=== PATIENT | female | born 1975 | race Caucasian/White ===

== ENCOUNTER 2017-08-17 16:42 | Inpatient (IN) | payer OTHER ==
[~2017-08-17] VITALS: Ht 162.6 cm; Wt 66.3 kg
[2017-08-17 17:05] VITALS: BP 142/72; PULSE 125; RESP 20; TEMP 99.9; O2SAT 99
--- NOTE | 2017-08-17 17:52 | RADRPT ---
EXAM DATE/TIME: 08/17/2017 17:21 [facility] COMPARISON: No previous studies available for comparison. INDICATIONS : Fever, cough and congestion MEDICAL HISTORY : None. SURGICAL HISTORY : None. ENCOUNTER: Initial ACUITY: 1 week PAIN SCORE: 0/10 LOCATION: chest FINDINGS: PA and lateral views of the chest demonstrate the lungs to be symmetrically aerated without evidence of mass, infiltrate or effusion. The cardiomediastinal contours are unremarkable. Osseous structure s are intact. CONCLUSION: No acute cardiopulmonary disease. Bry Bhardwaj MD on August 17, 2017 at 17:50 Board Certified Radiologist. This report was verified electronically.
[2017-08-17 19:30] LABS: AUTOMATED NEUTROPHIL # 11.1 TH/MM3 (1.8-7.7); BASOPHIL % 0.3 % (0.0-2.0); EOSINOPHIL % 0.1 % (0.0-4.0); HEMATOCRIT 31.8 % (35.0-46.0); HEMOGLOBIN 10.8 GM/DL (11.6-15.3); LYMPH % 7.2 % (9.0-44.0); MEAN CORPUSCULAR HEMOGLOBIN 30.9 PG (27.0-34.0); MEAN CORPUSCULAR HGB CONC 33.9 % (32.0-36.0); MONOCYTE # 1.5 TH/MM3 (0-0.9); NEUT % 81.4 % (16.0-70.0); PLATELET COUNT 311 TH/MM3 (150-450); RED BLOOD COUNT 3.49 MIL/MM3 (4.00-5.30); WHITE BLOOD COUNT 13.6 TH/MM3 (4.0-11.0)
[2017-08-17 19:41] LABS: INTERNATIONAL NORMALIZED RATIO 1.1 RATIO; PROTHROMBIN TIME - PATIENT 10.7 SEC (9.8-11.6)
[2017-08-17 19:44] LABS: BACTERIA, URINE MANY /hpf; BILIRUBIN, URINE NEG (NEG); BLOOD, URINE MOD (NEG); GLUCOSE,URINE NEG (NEG); KETONE, URINE NEG (NEG); NITRITE,URINE NEG (NEG); URINE LEUKOCYTE ESTERASE LARGE (NEG); WHITE BLOOD CELL CLUMPS MANY
[2017-08-17 19:47] LABS: URINE COLOR YELLOW (YELLW/STRAW)
--- NOTE | 2017-08-17 20:06 | PD ---
HPI Chief Complaint: Fever Time Seen by Provider: 20:06 Travel History International Travel<30 days: No Contact w/Intl Traveler<30days: No Traveled to known affect area: No History of Present Illness HPI 41-year-old female came to the emergency room with history of intense body aches , fever and chills for past 1 week. Patient was seen in [facility] yesterday where she was diagnosed with flu. Patient says the flu swab was negative. However she has not been feeling well. This morning her temperature was 104 as per her . Patient does not have good appetite. She has been complaining of some right-sided flank pain. The pain has been there continuously but worse when she moves. No radiation of the pain. Patient had a temperature of 99.9 in triage. She is otherwise a healthy person as far as she knows. But she has not been seen by a primary care for many years. She appears to be moderately ill. There was blood work initiated in triage. [facility] Past Medical History Narrative Medical List of her past medical, surgical, social and family history is reviewed from the nursing note. Cardiovascular Problems: Yes (HTN) Past Surgical History Hysterectomy: Yes Social History Tobacco Use: Yes Allergies-Medications (Allergen,Severity, Reaction): Coded Allergies: No Known Allergies (Verified Allergy, Unknown, 08/17/17) Comments No known drug allergy Reported Meds & Prescriptions Reported Meds & Active Scripts Active No Active Prescriptions or Reported Medications Narrative Medication List of her home medications reviewed from the nursing note. Review of Systems Except as stated in HPI: all other systems reviewed are Neg General / Constitutional: Positive: Fever Genitourinary: Positive: Flank Pain Musculoskeletal: Positive: Myalgias Physical Exam Narrative GENERAL: Awake, alert, moderate distress SKIN: Focused skin assessment warm/dry. HEAD: Atraumatic. Normocephalic. EYES: Pupils equal and round. No scleral icterus. No injection or drainage. ENT: No nasal bleeding or discharge. Dry mucous membrane NECK: Trachea midline. No JVD. CARDIOVASCULAR: Regular rate and rhythm. No murmur appreciated. RESPIRATORY: No accessory muscle use. Clear to auscultation. Breath sounds equal bilaterally. GASTROINTESTINAL: Abdomen soft, non-tender, nondistended. Hepatic and splenic margins not palpable. MUSCULOSKELETAL: No obvious deformities. No clubbing. No cyanosis. No edema. NEUROLOGICAL: Awake and alert. No obvious cranial nerve deficits. Motor grossly within normal limits. Normal speech. PSYCHIATRIC: Appropriate mood and affect; insight and judgment normal. Data Data Last Documented VS Vital Signs Date Time Temp Pulse Resp B/P (MAP) Pulse Ox O2 Delivery O2 Flow Rate FiO2 08/17/17 20:50 97 18 122/74 (90) 98 Room Air 08/17/17 17:05 99.9 Orders Orders Complete Blood Count With Diff (08/17/17 17:07) Comprehensive Metabolic Panel (08/17/17 17:07) Prothrombin Time / Inr (Pt) (08/17/17 17:07) Act Partial Throm Time (Ptt) (08/17/17 17:07) Urinalysis - C+S If Indicated (08/17/17 17:07) Chest, Pa & Lat (08/17/17 ) Lactic Acid Sepsis Protocol (08/17/17 17:07) Influenzae A/B Antigen (08/17/17 17:07) Urine Culture (08/17/17 18:50) Ct Abd/Pel W/O Iv Contrast (08/17/17 ) Ceftriaxone Inj (Rocephin Inj) (08/17/17 20:30) Sodium Chlor 0.9% 1000 Ml Inj (Ns 1000 M (08/17/17 20:30) Sodium Chlor 0.9% 1000 Ml Inj (Ns 1000 M (08/17/17 20:30) Creatine Kinase (Cpk) (08/17/17 20:21) Blood Culture (08/17/17 20:56) Sodium Chlor 0.9% 1000 Ml Inj (Ns 1000 M (08/17/17 22:00) Admit Order (Ed Use Only) (08/17/17 22:23) Labs Laboratory Tests Test 08/17/17 18:50 08/17/17 19:00 Urine Color YELLOW Urine Turbidity CLOUDY Urine pH 6.0 Urine Specific [place] 1.016 Urine Protein 300 mg/dL Urine Glucose (UA) NEG mg/dL Urine Ketones NEG mg/dL Urine Occult Blood MOD Urine Nitrite NEG Urine Bilirubin NEG Urine Urobilinogen 2.0 MG/DL Urine Leukocyte Esterase LARGE Urine RBC /hpf Urine WBC /hpf Urine WBC Clumps MANY Urine Bacteria MANY /hpf Microscopic Urinalysis Comment CULTURE INDICATED White Blood Count 13.6 TH/MM3 Red Blood Count 3.49 MIL/MM3 Hemoglobin 10.8 GM/DL Hematocrit 31.8 % Mean Corpuscular Volume 91.0 FL Mean Corpuscular Hemoglobin 30.9 PG Mean Corpuscular Hemoglobin Concent 33.9 % Red Cell Distribution Width 13.0 % Platelet Count 311 TH/MM3 Mean Platelet Volume 7.0 FL Neutrophils (%) (Auto) 81.4 % Lymphocytes (%) (Auto) 7.2 % Monocytes (%) (Auto) 11.0 % Eosinophils (%) (Auto) 0.1 % Basophils (%) (Auto) 0.3 % Neutrophils # (Auto) 11.1 TH/MM3 Lymphocytes # (Auto) 1.0 TH/MM3 Monocytes # (Auto) 1.5 TH/MM3 Eosinophils # (Auto) 0.0 TH/MM3 Basophils # (Auto) 0.0 TH/MM3 CBC Comment DIFF FINAL Differential Comment Prothrombin Time 10.7 SEC Prothromb Time International Ratio 1.1 RATIO Activated Partial Thromboplast Time 36.2 SEC Blood Urea Nitrogen 44 MG/DL Creatinine 2.90 MG/DL Random Glucose 116 MG/DL Total Protein 7.3 GM/DL Albumin 2.1 GM/DL Calcium Level 9.8 MG/DL Alkaline Phosphatase 228 U/L Aspartate Amino Transf (AST/SGOT) 17 U/L Alanine Aminotransferase (ALT/SGPT) 20 U/L Total Bilirubin 0.9 MG/DL Sodium Level 135 MEQ/L Potassium Level 3.7 MEQ/L Chloride Level 102 MEQ/L Carbon Dioxide Level 21.1 MEQ/L Anion Gap 12 MEQ/L Estimat Glomerular Filtration Rate 18 ML/MIN Lactic Acid Level 1.8 mmol/L Total Creatine Kinase 14 U/L [facility] Medical Decision Making Medical Screen Exam Complete: Yes Emergency Medical Condition: Yes Medical Record Reviewed: Yes Differential Diagnosis Pyelonephritis, sepsis, acute renal failure, dehydration Narrative Course 8:55 PM blood test results are back and patient has leukocytosis with a significant UTI. Lactic acid is within normal limits. Renal function is compromised. There is no old labs to compare with. Patient does not know of any renal failure history. I have ordered 2 L of IV fluid bolus and IV Rocephin. Have ordered a CT scan of her abdomen and pelvis looking for any urinary obstruction. There is a CPK ordered as well. Patient eventually will require to be admitted for her renal failure. 9:59 PM the CAT scan report came back and show some stranding around the right kidney. Patient's heart rate has come down. I have ordered 1/3 L of IV fluid bolus. Awaiting for the hospitalist to call back for admission. Critical Care Narrative Aggregate critical care time was 45 minutes. Time to perform other separately billable procedures was not included in the critical care time. My time did not include minutes spent treating any other patients simultaneously or on activities that did not directly contribute to the patient's treatment. The services I provided to this patient were to treat and/or prevent clinically significant deterioration that could result in: Severe sepsis, fluid resuscitation I provided critical care services requiring my management, as noted below: Chart data review, documentation time, medication orders and management, vital sign assessments/reviewing monitor data, ordering and reviewing lab tests, ordering and interpreting/reviewing x-rays and diagnostic studies, care of the patient and discussion of the patient with the admitting physicians. Procedures EKG Prior to Arrival: No Sepsis Criteria SIRS Criteria (2 or more): Heart rate over 90, WBC > 80122, < 4000 or > 10% bands Sepsis Criteria (SIRS+source): Infect source susp/known Severe Sepsis (+one): Acute Oliguria/Renal Failure Diagnosis Primary Impression: Pyelonephritis Additional Impressions: Acute renal failure Qualified Codes: N17.9 - Acute kidney failure, unspecified Severe sepsis Admitting Information Admitting Physician Requests: Admit Scripts No Active Prescriptions or Reported Meds Helio Wright MD Aug 17, 2017 20:06
[2017-08-17 20:14] LABS: ALBUMIN 2.1 GM/DL (3.4-5.0); AST (GOT) 17 U/L (15-37); BICARBONATE 21.1 MEQ/L (21.0-32.0); BLOOD UREA NITROGEN 44 MG/DL (7-18); CALCIUM 9.8 MG/DL (8.5-10.1); CHLORIDE 102 MEQ/L (98-107); GLOMERULAR FILTRATION RATE 18 ML/MIN (>89); GLUCOSE,RANDOM 116 MG/DL (74-106); SODIUM (NA) 135 MEQ/L (136-145)
[2017-08-17 20:15] LABS: ALT (GPT) 20 U/L (10-53)
[2017-08-17 20:18] LABS: ALKALINE PHOSPHATASE 228 U/L (45-117); TOTAL BILIRUBIN ADULT 0.9 MG/DL (0.2-1.0); TOTAL PROTEIN 7.3 GM/DL (6.4-8.2)
[2017-08-17] MEDS ORDERED: cefTRIAXone INJ 1,000 MG in SODIUM CHLORIDE 0.9% INJ 100 ML IV ONE (20:30)
[2017-08-17] MEDS ORDERED: SODIUM CHLOR 0.9% 1000 ML INJ 1,000 ML IV ONE ×3 (20:30→22:00)
[2017-08-17 20:50] VITALS: BP 122/74; PULSE 97; RESP 18; O2SAT 98
--- NOTE | 2017-08-17 21:47 | RADRPT ---
EXAM DATE/TIME: 08/17/2017 21:14 [facility] COMPARISON: No previous studies available for comparison. INDICATIONS : Right side flank pain, flu symptoms. ORAL CONTRAST: No oral contrast ingested. RADIATION DOSE: 6.10 CTDIvol (mGy) MEDICAL HISTORY : Hypertension. SURGICAL HISTORY : Hysterectomy. ENCOUNTER: Initial ACUITY: 4 - 6 days PAIN SCALE: 5/10 LOCATION: Right flank TECHNIQUE: Volumetric scanning of the abdomen and pelvis was performed. Using automated exposure control and ad justment of the mA and/or kV according to patient size, radiation dose was kept as low as reasonably achievable to obtain optimal diagnostic quality images. DICOM format image data is available electro nically for review and comparison. FINDINGS: There are numerous tiny bilateral renal calculi. There is some stranding around the right kidney coul d be related to recent obstructive uropathy although no current ureteral or bladder calculi are seen. Cannot exclude inflammatory change around the right kidney. Lung bases are clear. No acute findings in the liver, spleen, adrenals or pancreas. No free fluid. No bowel obstruction. No adenopathy. Postoperative hysterectomy. CONCLUSION: 1. Numerous tiny bilateral nonobstructing renal calculi. 2. Mild stranding of fat around the right kidney could be from recent obstructive uropathy or mild in flammatory change. 3. No bowel obstruction, free air or free fluid. Lung bases clear. Bayron Varner MD on August 17, 2017 at 21:41 Board Certified Radiologist. This report was verified electronically.
[2017-08-17 22:47] VITALS: TEMP 99.8
[2017-08-18] MEDS ORDERED: ONDANSETRON HCL 4 MG/2 ML VIAL IVP PRN (00:15)
[2017-08-18] MEDS ORDERED: SODIUM CHLORIDE 0.9% FLUSH 10 ML FLUSH IV FLUSH PRN (00:15)
[2017-08-18] MEDS ORDERED: NALOXONE HCL 0.4 MG/ML AMP IV PUSH PRN (00:15)
[2017-08-18] MEDS: SODIUM CHLOR 0.9% 1000 ML INJ 1,000 ML IV SCH ×4 (01:20→21:59)
--- NOTE | 2017-08-18 01:23 | HHI.HP ---
[facility] Service [facility] Primary Care Physician Non-Staff Admission Diagnosis Severe sepsis, acute renal failure, pyelonephritis Diagnoses: Travel History International Travel<30 Days: No Contact w/Intl Traveler <30 Da: No Traveled to Known Affected Are: No History of Present Illness 41-year-old female with a past medical history significant for hypertension presents the emergency department for the evaluation of flulike symptoms. The patient states she has had fevers and chills 7 days with accompanying body aches. She complains of a cough productive of clear sputum with occasional shortness of breath. He denies any chest pain. She endorses bilateral side and flank pain. Denies any dysuria. No foul-smelling urine. No abdominal pain. No nausea/vomiting/diarrhea. Review of Systems Except as stated in HPI: all other systems reviewed are Neg Past Family Social History Past Medical History Hypertension Past Surgical History Hysterectomy Reported Medications Reported Meds & Active Scripts Active No Active Prescriptions or Reported Medications Allergies: Coded Allergies: No Known Allergies (Verified Allergy, Unknown, 08/17/17) Family History Father with diabetes mellitus Social History Negative for alcohol, tobacco and illicit drugs Physical Exam Vital Signs Vital Signs Date Time Temp Pulse Resp B/P (MAP) Pulse Ox O2 Delivery O2 Flow Rate FiO2 08/17/17 22:47 99.8 08/17/17 20:50 97 18 122/74 (90) 98 Room Air 08/17/17 17:05 99.9 125 20 142/72 (95) 99 Physical Exam GENERAL: female lying in bed, shivering SKIN: No rashes, ecchymoses or lesions. Cool and dry. HEAD: Atraumatic. Normocephalic. No temporal or scalp tenderness. EYES: Pupils equal round and reactive. Extraocular motions intact. No scleral icterus. No injection or drainage. ENT: Nose without bleeding, purulent drainage or septal hematoma. Throat without erythema, tonsillar hypertrophy or exudate. Uvula midline. Airway patent. NECK: Trachea midline. No JVD or lymphadenopathy. Supple, nontender, no meningeal signs. CARDIOVASCULAR: Regular rate and rhythm without murmurs, gallops, or rubs. RESPIRATORY: Clear to auscultation. Breath sounds equal bilaterally. No wheezes , rales, or rhonchi. GASTROINTESTINAL: Abdomen soft, non-tender, nondistended. No hepato-splenomegaly , or palpable masses. No guarding. : No CVA tenderness MUSCULOSKELETAL: Extremities without clubbing, cyanosis, or edema. No joint tenderness, effusion, or edema noted. No calf tenderness. NEUROLOGICAL: Awake and alert. Cranial nerves II through XII intact. Motor and sensory grossly within normal limits. Normal speech. Laboratory Laboratory Tests Test 08/17/17 18:50 08/17/17 19:00 Urine Color YELLOW Urine Turbidity CLOUDY Urine pH 6.0 Urine Specific [place] 1.016 Urine Protein 300 Urine Glucose (UA) NEG Urine Ketones NEG Urine Occult Blood MOD Urine Nitrite NEG Urine Bilirubin NEG Urine Urobilinogen 2.0 Urine Leukocyte Esterase LARGE Urine RBC Urine WBC Urine WBC Clumps MANY Urine Bacteria MANY Microscopic Urinalysis Comment CULTURE INDICATED White Blood Count 13.6 Red Blood Count 3.49 Hemoglobin 10.8 Hematocrit 31.8 Mean Corpuscular Volume 91.0 Mean Corpuscular Hemoglobin 30.9 Mean Corpuscular Hemoglobin Concent 33.9 Red Cell Distribution Width 13.0 Platelet Count 311 Mean Platelet Volume 7.0 Neutrophils (%) (Auto) 81.4 Lymphocytes (%) (Auto) 7.2 Monocytes (%) (Auto) 11.0 Eosinophils (%) (Auto) 0.1 Basophils (%) (Auto) 0.3 Neutrophils # (Auto) 11.1 Lymphocytes # (Auto) 1.0 Monocytes # (Auto) 1.5 Eosinophils # (Auto) 0.0 Basophils # (Auto) 0.0 CBC Comment DIFF FINAL Differential Comment Prothrombin Time 10.7 Prothromb Time International Ratio 1.1 Activated Partial Thromboplast Time 36.2 Blood Urea Nitrogen 44 Creatinine 2.90 Random Glucose 116 Total Protein 7.3 Albumin 2.1 Calcium Level 9.8 Alkaline Phosphatase 228 Aspartate Amino Transf (AST/SGOT) 17 Alanine Aminotransferase (ALT/SGPT) 20 Total Bilirubin 0.9 Sodium Level 135 Potassium Level 3.7 Chloride Level 102 Carbon Dioxide Level 21.1 Anion Gap 12 Estimat Glomerular Filtration Rate 18 Lactic Acid Level 1.8 Total Creatine Kinase 14 Date/Time Source Procedure Growth Status 08/17/17 21:25 Blood Peripheral Aerobic Blood Culture Pending Received 4/2/18 21:25 Blood Peripheral Anaerobic Blood Culture Pending Received 08/17/17 18:50 Nasal Aspirate Influenza Types A,B Antigen (ESTELA) - Final NEGATIVE FOR FLU A AND B ANTIGEN.... Complete 08/17/17 18:50 Urine Clean Catch Urine Culture Pending Received Result Diagram: 08/17/17 1900 08/17/17 1900 Caprini VTE Risk Assessment Caprini VTE Risk Assessment: No/Low Risk (score <= 1) Caprini Risk Assessment Model Point Value = 1 Point Value = 2 Point Value = 3 Point Value = 5 Age 41-60 Minor surgery BMI > 25 kg/m2 Swollen legs Varicose veins or History of unexplained or recurrent spontaneous Oral contraceptives or hormone replacement Sepsis (< 1 month) Serious lung disease, including pneumonia (< 1 month) Abnormal pulmonary function Acute myocardial infarction Congestive heart failure (< 1 month) History of inflammatory bowel disease Medical patient at bed rest Age 61-74 Arthroscopic surgery Major open surgery (> 45 min) Laparoscopic surgery (> 45 min) Malignancy Confined to bed (> 72 hours) Immobilizing plaster cast Central venous access Age >= 75 History of VTE Family history of VTE Factor V Leiden Prothrombin [id number] Lupus anticoagulant Anticardiolipin antibodies Elevated serum homocysteine Heparin-induced thrombocytopenia Other congenital or acquired thrombophilia Stroke (< 1 month) Elective arthroplasty Hip, pelvis, or leg fracture Acute spinal cord injury (< 1 month) Prophylaxis Regimen Total Risk Factor Score Risk Level Prophylaxis Regimen 0-1 Low Early ambulation 2 Moderate Order ONE of the following: *Sequential Compression Device (SCD) *Heparin 5000 units SQ BID 3-4 Higher Order ONE of the following medications: *Heparin 5000 units SQ TID *Enoxaparin/Lovenox 40 mg SQ daily (WT < 150 kg, CrCl > 30 mL/min) *Enoxaparin/Lovenox 30 mg SQ daily (WT < 150 kg, CrCl > 10-29 mL/min) *Enoxaparin/Lovenox 30 mg SQ BID (WT < 150 kg, CrCl > 30 mL/min) AND/OR *Sequential Compression Device (SCD) 5 or more Highest Order ONE of the following medications: *Heparin 5000 units SQ TID (Preferred with Epidurals) *Enoxaparin/Lovenox 40 mg SQ daily (WT < 150 kg, CrCl > 30 mL/min) *Enoxaparin/Lovenox 30 mg SQ daily (WT < 150 kg, CrCl > 10-29 mL/min) *Enoxaparin/Lovenox 30 mg SQ BID (WT < 150 kg, CrCl > 30 mL/min) AND *Sequential Compression Device (SCD) Assessment and Plan Assessment and Plan Assessment/plan: 1. Sepsis/UTI She meets sepsis criteria with leukocytosis and tachycardia UA insistent with urinary tract infection Urine cultures pending Blood cultures pending Rocephin IV fluid hydration 2. Acute renal failure BUN/creatinine 44/2.90, no baseline for comparison Unknown etiology CT of the abdomen/pelvis significant for numerous bilateral nonobstructing renal calculi with mild stranding of fat around the right kidney from recent obstructive uropathy versus mild inflammatory change IV fluid hydration Monitor renal function Consider nephrology consult if renal function does not improve 3. Hypertension Patient not on home antihypertensives Vasotec when necessary FEN Regular diet Electrolytes: Monitor and replete when necessary NS at 1 25 cc/hour Physician Certification 2 Midnight Certification Type: Admission for Inpatient Services Order for Inpatient Services The services are ordered in accordance with Medicare regulations or non- Medicare payer requirements, as applicable. In the case of services not specified as inpatient-only, they are appropriately provided as inpatient services in accordance with the 2-midnight benchmark. Estimated LOS (days): 2 2 days is the estimated time the patient will need to remain in the hospital, assuming treatment plan goals are met and no additional complications. Post-Hospital Plan: Not yet determined Juana Law MD Aug 18, 2017 01:23
[2017-08-18 05:35] VITALS: BP 124/73; PULSE 100; RESP 19; TEMP 101.3; O2SAT 99
[2017-08-18] MEDS: ACETAMINOPHEN 325 MG TAB PO PRN ×3 (05:40→21:58)
[2017-08-18 06:40] VITALS: TEMP 99.5
[2017-08-18] MEDS: SODIUM CHLORIDE 0.9% FLUSH 10 ML FLUSH IV FLUSH SCH ×2 (08:18→21:58)
[2017-08-18 08:56] VITALS: BP 121/77; PULSE 92; RESP 17; TEMP 99.8; O2SAT 99
[2017-08-18 12:45] VITALS: BP 123/91; PULSE 110; RESP 19; TEMP 101.8; O2SAT 97
--- NOTE | 2017-08-18 16:00 | HHI.PR ---
Subjective Remarks patient presented with generalized body aches for past 7-0 days with fever and chill and body aches- like flulike symptoms few days ago noted cloudy bloody urine with bilateral flank pains states history of kidney stones which she passed spontaneously 3 years ago- no stone analysis done otherwise unremarkabel medical history no complains of dysuria or urgency t max 101.8 Objective Vitals Vital Signs Date Time Temp Pulse Resp B/P (MAP) Pulse Ox O2 Delivery O2 Flow Rate FiO2 08/18/17 14:02 08/18/17 12:45 101.8 110 19 123/91 (102) 97 Room Air 08/18/17 08:56 99.8 92 17 121/77 (92) 99 Room Air 08/18/17 06:40 99.5 08/18/17 05:35 101.3 100 19 124/73 (90) 99 Room Air 08/17/17 22:47 99.8 08/17/17 20:50 97 18 122/74 (90) 98 Room Air 08/17/17 17:05 99.9 125 20 142/72 (95) 99 I/O 08/17/17 08/17/17 08/17/17 08/18/17 08/18/17 08/18/17 07:00 15:00 23:00 07:00 15:00 23:00 Intake Total 2100 ml 1000 ml Balance 2100 ml 1000 ml Intake IV Total 2100 ml 1000 ml # Voids 1 Result Diagram: 08/17/17 1900 08/17/17 1900 Imaging Last Impressions Chest X-Ray 08/17/17 0000 Signed Impressions: Service Date/Time: Thursday, August 17, 2017 17:21 - CONCLUSION: No acute cardiopulmonary disease. Bry Bhardwaj MD Abdomen/Pelvis CT 08/17/17 0000 Signed Impressions: Service Date/Time: Thursday, August 17, 2017 21:14 - CONCLUSION: 1. Numerous tiny bilateral nonobstructing renal calculi. 2. Mild stranding of fat around the right kidney could be from recent obstructive uropathy or mild inflammatory change. 3. No bowel obstruction, free air or free fluid. Lung bases clear. Bayron Varner MD Objective Remarks awake and alert but feels weak anicteric no nuchal rigidity lungs- no rales regular rhythm HR- 99 abdomen-sfot good bowel sounds, bilateral CVA tenderness extremities no edema neuro exam- non focal A/P Assessment and Plan 41 years old female Sepsis secondary to Bilateral pyelonephritis- urine culture- with Gram negative rods- ff final c and S- t max 101.8 History of nephrolithiasis in the past blood culture- negative so far- ff final results Rocephin will give x 1 diose of IV levaquin for double gram negative coverage will get ID involve early consider Urology consult Acute Kidney injury- no baseline labs for comparison Underlying obstructive Uropathy - with history of passing stone sin the past CT shows non obstructing calculi patient voiding well- ff continue aggressive IVF ff BMP consider urology consult vs nephrology consult if no improvement in renal functions Hypertension Hold prn IV Kilo with LEANDRO korina clonidine prn FEN Regular diet Electrolytes: Monitor and replete when necessary NS at 1 25 cc/hour UP and ambulate. Increase activity Tigre Pagan MD Aug 18, 2017 16:00
[2017-08-18] MEDS ORDERED: LEVOFLOXACIN 500 MG PREMIX INJ 100 ML IV ONE (16:15)
--- NOTE | 2017-08-18 17:37 | PD.ID.CON ---
History of Present Illness Service ID Consult Requested By Dr Pagan Reason for Consult sepsis, pyelo Primary Care Physician Non-Staff Diagnoses: History of Present Illness 41 yo female with previously diagnosed kidney stones developped spiking fevers, hills and generalysed pain about 2 weeks ago She did not seek med attention untill Thursday because she was sure that she had a a flu She was seen at [facility] on Sun, diagnosed with flu and discharged Noted smell to her urine and some hematuria CT abd/pel showed mild stranding around R kidney and caluli (b/l) On presentation febrile with T max 101.3, + leukocytosis of 13K, no lactic acidosiss and in aARF (cr 2.90) Urine clx growing GNR - on CFTX Review of Systems Constitutional: COMPLAINS OF: Fatigue, Fever, Change in appetite Respiratory: COMPLAINS OF: Cough Gastrointestinal: COMPLAINS OF: Nausea, Vomiting Genitourinary: COMPLAINS OF: Hematuria Musculoskeletal: COMPLAINS OF: Back pain Except as stated in HPI: all other systems reviewed are Neg Past Family Social History Allergies: Coded Allergies: No Known Allergies (Verified Allergy, Unknown, 08/17/17) Past Medical History kidney stones Past Surgical History hysterectomy 5 yrs ago (benign) Active Ordered Medications Medications where reviewed in EMR Antibiotics Include: CFTX Family History reviewed/non contributory Social History No Tobacco. No ETOH. No Illicit Drugs. Physical Exam Vital Signs Vital Signs Date Time Temp Pulse Resp B/P (MAP) Pulse Ox O2 Delivery O2 Flow Rate FiO2 08/18/17 14:02 08/18/17 12:45 101.8 110 19 123/91 (102) 97 Room Air 08/18/17 08:56 99.8 92 17 121/77 (92) 99 Room Air 08/18/17 06:40 99.5 08/18/17 05:35 101.3 100 19 124/73 (90) 99 Room Air 08/17/17 22:47 99.8 08/17/17 20:50 97 18 122/74 (90) 98 Room Air Physical Exam CONSTITUTIONAL/GENERAL: This is an adequately nourished patient, in no apparent distress. Ill appearing TUBES/LINES/DRAINS: SKIN: No jaundice, rashes, or lesions. Skin temperature appropriate. Not diaphoretic. HEAD: Atraumatic. Normocephalic. EYES: Pupils equal and round and reactive. Extraocular motions intact. No scleral icterus. No injection or drainage. Fundi not examined. ENT: Hearing grossly normal. Nose without bleeding or purulent drainage. Throat without visible erythema, exudates, masses, or lesions. NECK: Trachea midline. Supple, nontender. No palpable thyroid enlargement or nodularity. CARDIOVASCULAR: Regular rate and rhythm without murmurs, gallops, or rubs. No JVD. Peripheral pulses symmetric. RESPIRATORY/CHEST: Symmetric, unlabored respirations. Clear to auscultation. Breath sounds equal bilaterally. No wheezes, rales, or rhonchi. GASTROINTESTINAL: Abdomen soft,mildly tender, nondistended. No hepato- splenomegaly, or palpable masses. No guarding. Bowel sounds present. GENITOURINARY: Without palpable bladder distension. + B/L prominent CVA tenderness MUSCULOSKELETAL: Extremities without clubbing, cyanosis, + trace BLE edema. No joint tenderness or effusion noted. No calf tenderness. No mottling or clubbing. LYMPHATICS: No palpable cervical or supraclavicular adenopathy. NEUROLOGICAL: Awake and alert. Motor and sensory grossly within normal limits. Follows commands. Clear speech. Moves all extremities. PSYCHIATRIC: No obvious anxiety/depression. no apparent hallucinations or other psychotic thought process. Laboratory Laboratory Tests Test 08/17/17 18:50 08/17/17 19:00 Urine Color YELLOW Urine Turbidity CLOUDY Urine pH 6.0 Urine Specific Frederic 1.016 Urine Protein 300 Urine Glucose (UA) NEG Urine Ketones NEG Urine Occult Blood MOD Urine Nitrite NEG Urine Bilirubin NEG Urine Urobilinogen 2.0 Urine Leukocyte Esterase LARGE Urine RBC Urine WBC Urine WBC Clumps MANY Urine Bacteria MANY Microscopic Urinalysis Comment CULTURE INDICATED White Blood Count 13.6 Red Blood Count 3.49 Hemoglobin 10.8 Hematocrit 31.8 Mean Corpuscular Volume 91.0 Mean Corpuscular Hemoglobin 30.9 Mean Corpuscular Hemoglobin Concent 33.9 Red Cell Distribution Width 13.0 Platelet Count 311 Mean Platelet Volume 7.0 Neutrophils (%) (Auto) 81.4 Lymphocytes (%) (Auto) 7.2 Monocytes (%) (Auto) 11.0 Eosinophils (%) (Auto) 0.1 Basophils (%) (Auto) 0.3 Neutrophils # (Auto) 11.1 Lymphocytes # (Auto) 1.0 Monocytes # (Auto) 1.5 Eosinophils # (Auto) 0.0 Basophils # (Auto) 0.0 CBC Comment DIFF FINAL Differential Comment Prothrombin Time 10.7 Prothromb Time International Ratio 1.1 Activated Partial Thromboplast Time 36.2 Blood Urea Nitrogen 44 Creatinine 2.90 Random Glucose 116 Total Protein 7.3 Albumin 2.1 Calcium Level 9.8 Alkaline Phosphatase 228 Aspartate Amino Transf (AST/SGOT) 17 Alanine Aminotransferase (ALT/SGPT) 20 Total Bilirubin 0.9 Sodium Level 135 Potassium Level 3.7 Chloride Level 102 Carbon Dioxide Level 21.1 Anion Gap 12 Estimat Glomerular Filtration Rate 18 Lactic Acid Level 1.8 Total Creatine Kinase 14 Date/Time Source Procedure Growth Status 08/17/17 21:25 Blood Peripheral Aerobic Blood Culture - Preliminary NO GROWTH IN 1 DAY Resulted 08/17/17 21:25 Blood Peripheral Anaerobic Blood Culture - Preliminary NO GROWTH IN 1 DAY Resulted 08/17/17 18:50 Nasal Aspirate Influenza Types A,B Antigen (ESTELA) - Final NEGATIVE FOR FLU A AND B ANTIGEN.... Complete 08/17/17 18:50 Urine Clean Catch Urine Culture - Preliminary Gram Negative Wilberto Resulted Result Diagram: 08/17/17 1900 08/17/17 1900 Imaging Last Impressions Chest X-Ray 08/17/17 0000 Signed Impressions: Service Date/Time: Thursday, August 17, 2017 17:21 - CONCLUSION: No acute cardiopulmonary disease. Bry Bhardwaj MD Abdomen/Pelvis CT 08/17/17 0000 Signed Impressions: Service Date/Time: Thursday, August 17, 2017 21:14 - CONCLUSION: 1. Numerous tiny bilateral nonobstructing renal calculi. 2. Mild stranding of fat around the right kidney could be from recent obstructive uropathy or mild inflammatory change. 3. No bowel obstruction, free air or free fluid. Lung bases clear. Bayron Varner MD Assessment and Plan Assessment and Plan Pyelonephriotis R sided UTI, Gram negative Sepsis ARF probably 2/2 obstructive uropathy 2/2 kid ey stonmes or denydratio or both change abx to Monica Lemus MD Aug 18, 2017 17:36
[2017-08-18 17:58] VITALS: BP 122/77; PULSE 104; RESP 22; TEMP 99.9; O2SAT 99
[2017-08-18 20:00] VITALS: BP 124/69; PULSE 106; RESP 20; TEMP 98.9; O2SAT 97
[2017-08-18] MEDS ORDERED: cefTRIAXone INJ 1,000 MG in SODIUM CHLORIDE 0.9% INJ 100 ML IV SCH (21:00)
[2017-08-18] MEDS: PIPERACIL-TAZO 2.25 GM PREMIX 50 ML IV SCH (21:55)
[2017-08-19] VITALS: BP 124/70; PULSE 96; RESP 18; TEMP 98.9; O2SAT 97
[2017-08-19] MEDS: PIPERACIL-TAZO 2.25 GM PREMIX 50 ML IV SCH ×3 (03:47→14:17)
[2017-08-19 04:00] VITALS: BP 122/78; PULSE 84; RESP 18; TEMP 99.1; O2SAT 100
[2017-08-19 04:58] LABS: AUTOMATED NEUTROPHIL # 8.3 TH/MM3 (1.8-7.7); BASOPHIL # 0.1 TH/MM3 (0-0.2); BASOPHIL % 0.5 % (0.0-2.0); EOSINOPHIL # 0.2 TH/MM3 (0-0.4); EOSINOPHIL % 1.5 % (0.0-4.0); LYMPHOCYTE # 1.3 TH/MM3 (1.0-4.8); MEAN CELL VOLUME 91.5 FL (80.0-100.0); MEAN CORPUSCULAR HEMOGLOBIN 30.6 PG (27.0-34.0); MEAN CORPUSCULAR HGB CONC 33.5 % (32.0-36.0); MONO % 13.9 % (0.0-8.0); MONOCYTE # 1.6 TH/MM3 (0-0.9); NEUT % 73.1 % (16.0-70.0); PLATELET COUNT 310 TH/MM3 (150-450); RED BLOOD COUNT 2.95 MIL/MM3 (4.00-5.30); RED CELL DISTRIBUTION WIDTH 13.8 % (11.6-17.2); WHITE BLOOD COUNT 11.4 TH/MM3 (4.0-11.0)
[2017-08-19 05:30] LABS: ALBUMIN 1.5 GM/DL (3.4-5.0); ALKALINE PHOSPHATASE 305 U/L (45-117); ALT (GPT) 34 U/L (10-53); AST (GOT) 58 U/L (15-37); BICARBONATE 20.6 MEQ/L (21.0-32.0); BLOOD UREA NITROGEN 26 MG/DL (7-18); CALCIUM 8.5 MG/DL (8.5-10.1); CHLORIDE 113 MEQ/L (98-107); CREATININE 1.85 MG/DL (0.50-1.00); GLOMERULAR FILTRATION RATE 30 ML/MIN (>89); GLUCOSE,RANDOM 93 MG/DL (74-106); SODIUM (NA) 142 MEQ/L (136-145); TOTAL BILIRUBIN ADULT 1.5 MG/DL (0.2-1.0); TOTAL PROTEIN 6.6 GM/DL (6.4-8.2)
[2017-08-19 08:00] VITALS: BP 117/73; PULSE 95; RESP 18; TEMP 98.3; O2SAT 98
[2017-08-19] MEDS: SODIUM CHLOR 0.9% 1000 ML INJ 1,000 ML IV SCH ×3 (08:12→21:06)
[2017-08-19] MEDS: SODIUM CHLORIDE 0.9% FLUSH 10 ML FLUSH IV FLUSH SCH ×2 (08:42→21:00)
[2017-08-19] MEDS: ACETAMINOPHEN 325 MG TAB PO PRN ×2 (09:14→21:07)
[2017-08-19 12:00] VITALS: BP 121/66; PULSE 85; RESP 18; TEMP 98.1; O2SAT 99
[2017-08-19] MEDS ORDERED: ASP: Documented ESBL, MDR A baumannii or P. aeruginosa PRN (14:45)
[2017-08-19] MEDS ORDERED: MISCELLANEOUS PHARMACY INFORMATION XX PRN (14:45)
--- NOTE | 2017-08-19 15:00 | HHI.IDPN ---
Subjective Subjective Remarks pt is doing much better afebrile Grew ESBL + E.coli Antibiotics zosyn Allergies: Coded Allergies: No Known Allergies (Verified Allergy, Unknown, 08/17/17) Objective . Vital Signs Date Time Temp Pulse Resp B/P (MAP) Pulse Ox O2 Delivery O2 Flow Rate FiO2 08/19/17 12:00 98.1 85 18 121/66 (84) 99 08/19/17 10:14 18 08/19/17 08:00 98.3 95 18 117/73 (88) 98 08/19/17 04:00 99.1 84 18 122/78 (93) 100 08/19/17 00:00 98.9 96 18 124/70 (88) 97 08/18/17 20:00 98.9 106 20 124/69 (87) 97 08/18/17 17:58 99.9 104 22 122/77 (92) 99 . Laboratory Tests Test 08/17/17 19:00 08/19/17 03:35 White Blood Count 13.6 TH/MM3 11.4 TH/MM3 Red Blood Count 3.49 MIL/MM3 2.95 MIL/MM3 Hemoglobin 10.8 GM/DL 9.0 GM/DL Hematocrit 31.8 % 27.0 % Mean Corpuscular Volume 91.0 FL 91.5 FL Mean Corpuscular Hemoglobin 30.9 PG 30.6 PG Mean Corpuscular Hemoglobin Concent 33.9 % 33.5 % Red Cell Distribution Width 13.0 % 13.8 % Platelet Count 311 TH/MM3 310 TH/MM3 Mean Platelet Volume 7.0 FL 7.0 FL Neutrophils (%) (Auto) 81.4 % 73.1 % Lymphocytes (%) (Auto) 7.2 % 11.0 % Monocytes (%) (Auto) 11.0 % 13.9 % Eosinophils (%) (Auto) 0.1 % 1.5 % Basophils (%) (Auto) 0.3 % 0.5 % Neutrophils # (Auto) 11.1 TH/MM3 8.3 TH/MM3 Lymphocytes # (Auto) 1.0 TH/MM3 1.3 TH/MM3 Monocytes # (Auto) 1.5 TH/MM3 1.6 TH/MM3 Eosinophils # (Auto) 0.0 TH/MM3 0.2 TH/MM3 Basophils # (Auto) 0.0 TH/MM3 0.1 TH/MM3 CBC Comment DIFF FINAL DIFF FINAL Differential Comment Laboratory Tests Test 08/17/17 19:00 08/19/17 03:35 Blood Urea Nitrogen 44 MG/DL 26 MG/DL Creatinine 2.90 MG/DL 1.85 MG/DL Random Glucose 116 MG/DL 93 MG/DL Total Protein 7.3 GM/DL 6.6 GM/DL Albumin 2.1 GM/DL 1.5 GM/DL Calcium Level 9.8 MG/DL 8.5 MG/DL Alkaline Phosphatase 228 U/L 305 U/L Aspartate Amino Transf (AST/SGOT) 17 U/L 58 U/L Alanine Aminotransferase (ALT/SGPT) 20 U/L 34 U/L Total Bilirubin 0.9 MG/DL 1.5 MG/DL Sodium Level 135 MEQ/L 142 MEQ/L Potassium Level 3.7 MEQ/L 4.5 MEQ/L Chloride Level 102 MEQ/L 113 MEQ/L Carbon Dioxide Level 21.1 MEQ/L 20.6 MEQ/L Anion Gap 12 MEQ/L 8 MEQ/L Estimat Glomerular Filtration Rate 18 ML/MIN 30 ML/MIN Lactic Acid Level 1.8 mmol/L Total Creatine Kinase 14 U/L Microbiology Date/Time Source Procedure Growth Status 08/17/17 21:25 Blood Peripheral Aerobic Blood Culture - Preliminary NO GROWTH IN 2 DAYS Resulted 08/17/17 21:25 Blood Peripheral Anaerobic Blood Culture - Preliminary NO GROWTH IN 2 DAYS Resulted 08/17/17 21:15 Blood Peripheral Aerobic Blood Culture - Preliminary NO GROWTH IN 2 DAYS Resulted 08/17/17 21:15 Blood Peripheral Anaerobic Blood Culture - Preliminary NO GROWTH IN 2 DAYS Resulted 08/17/17 18:50 Nasal Aspirate Influenza Types A,B Antigen (ESTELA) - Final NEGATIVE FOR FLU A AND B ANTIGEN.... Complete 08/17/17 18:50 Urine Clean Catch Urine Culture - Final Escherichia Coli Esbl Positive Complete Imaging Last Impressions Chest X-Ray 08/17/17 0000 Signed Impressions: Service Date/Time: Thursday, August 17, 2017 17:21 - CONCLUSION: No acute cardiopulmonary disease. Bry Bhardwaj MD Abdomen/Pelvis CT 08/17/17 0000 Signed Impressions: Service Date/Time: Thursday, August 17, 2017 21:14 - CONCLUSION: 1. Numerous tiny bilateral nonobstructing renal calculi. 2. Mild stranding of fat around the right kidney could be from recent obstructive uropathy or mild inflammatory change. 3. No bowel obstruction, free air or free fluid. Lung bases clear. Bayron Varner MD Physical Exam CONSTITUTIONAL/GENERAL: This is an adequately nourished patient, in no apparent distress.Well appearing TUBES/LINES/DRAINS: SKIN: No jaundice, rashes, or lesions. Skin temperature appropriate. Not diaphoretic. CARDIOVASCULAR: Regular rate and rhythm without murmurs, gallops, or rubs. No JVD. Peripheral pulses symmetric. RESPIRATORY/CHEST: Symmetric, unlabored respirations. Clear to auscultation. Breath sounds equal bilaterally. No wheezes, rales, or rhonchi. GASTROINTESTINAL: Abdomen soft,mildly tender, nondistended. No hepato- splenomegaly, or palpable masses. No guarding. Bowel sounds present. GENITOURINARY: Without palpable bladder distension. + B/L prominent CVA tenderness MUSCULOSKELETAL: Extremities without clubbing, cyanosis, NEUROLOGICAL: Awake and alert. Motor and sensory grossly within normal limits. Follows commands. Clear speech. Moves all extremities. PSYCHIATRIC: No obvious anxiety/depression. no apparent hallucinations or other psychotic thought process. Laboratory Assessment & Plan Remarks Pyelonephriotis R sided UTI, ESBL + E.coli Sepsis ARF probably 2/2 obstructive uropathy 2/2 kid brittani palafox or greyson or both change abx to Ertapenem monitor temps and fever Monica Bruce MD Aug 19, 2017 15:00
--- NOTE | 2017-08-19 15:14 | HHI.PR ---
Subjective Remarks voiding well- urine - less cloudy, T down right flank pain improved but still " slight" afebrile no nausea or vomiting Objective Vitals Vital Signs Date Time Temp Pulse Resp B/P (MAP) Pulse Ox O2 Delivery O2 Flow Rate FiO2 08/19/17 12:00 98.1 85 18 121/66 (84) 99 08/19/17 10:14 18 08/19/17 08:00 98.3 95 18 117/73 (88) 98 08/19/17 04:00 99.1 84 18 122/78 (93) 100 08/19/17 00:00 98.9 96 18 124/70 (88) 97 08/18/17 20:00 98.9 106 20 124/69 (87) 97 08/18/17 17:58 99.9 104 22 122/77 (92) 99 I/O 08/18/17 08/18/17 08/18/17 08/19/17 08/19/17 08/19/17 07:00 15:00 23:00 07:00 15:00 23:00 Intake Total 1000 ml 715 ml Output Total 300 ml Balance 1000 ml 415 ml Intake Oral 240 ml IV Total 1000 ml 475 ml Output Urine Total 300 ml # Voids 1 3 # Bowel Movements 2 Result Diagram: 08/19/17 0335 08/19/17 0335 Imaging Last Impressions Chest X-Ray 08/17/17 0000 Signed Impressions: Service Date/Time: Thursday, August 17, 2017 17:21 - CONCLUSION: No acute cardiopulmonary disease. Bry Bhardwaj MD Abdomen/Pelvis CT 08/17/17 0000 Signed Impressions: Service Date/Time: Thursday, August 17, 2017 21:14 - CONCLUSION: 1. Numerous tiny bilateral nonobstructing renal calculi. 2. Mild stranding of fat around the right kidney could be from recent obstructive uropathy or mild inflammatory change. 3. No bowel obstruction, free air or free fluid. Lung bases clear. Bayron Varner MD Objective Remarks awake and alert but feels weak anicteric no nuchal rigidity lungs- no rales regular rhythm HR- 99 abdomen-sfot good bowel sounds, , mild right CVA tenderness extremities no edema neuro exam- non focal A/P Assessment and Plan 41 years old female Sepsis secondary to right pyelonephritis- urine culture- with Gram negative rods -ESBL- sensitivity pending History of nephrolithiasis in the past blood culture- negative so far- ff final results ID ff- antibiotic switched to Ertapenem today strain urine Acute Kidney injury- no baseline labs for comparison- creatinine trending down Underlying obstructive Uropathy - with history of passing stone sin the past CT shows non obstructing calculi patient voiding well- ff continue IVF ff BMP consider urology consult vs nephrology consult if no improvement in renal functions Hypertension- good readings off meds Hold prn IV Kilo with LEANDRO korina clonidine prn FEN Regular diet Electrolytes: Monitor and replete when necessary UP and ambulate. Increase activity DC planning hopefully tomorrow when sensitivity back- for po antibiotics Tigre Pagan MD Aug 19, 2017 15:13
[2017-08-19] MEDS: ERTAPENEM INJ 1,000 MG in SODIUM CHLORIDE 0.9% INJ 100 ML IV SCH (15:31)
[2017-08-19 16:00] VITALS: BP 127/78; PULSE 79; RESP 18; TEMP 98.1; O2SAT 100
[2017-08-19 21:09] VITALS: BP 120/77; RESP 20; TEMP 100.9
[2017-08-20] VITALS (7 sets, daily range): BP systolic 105–144; BP diastolic 59–91; PULSE 72–88; RESP 18–20; TEMP 98.2–98.9; O2SAT 96–100
[2017-08-20 07:06] LABS: ALBUMIN 1.6 GM/DL (3.4-5.0); ALT (GPT) 27 U/L (10-53); AST (GOT) 19 U/L (15-37); BICARBONATE 23.3 MEQ/L (21.0-32.0); BLOOD UREA NITROGEN 19 MG/DL (7-18); CALCIUM 8.5 MG/DL (8.5-10.1); CHLORIDE 115 MEQ/L (98-107); CREATININE 1.43 MG/DL (0.50-1.00); GLOMERULAR FILTRATION RATE 40 ML/MIN (>89); GLUCOSE,RANDOM 101 MG/DL (74-106); SODIUM (NA) 146 MEQ/L (136-145)
[2017-08-20 07:08] LABS: ALKALINE PHOSPHATASE 298 U/L (45-117); TOTAL BILIRUBIN ADULT 0.8 MG/DL (0.2-1.0); TOTAL PROTEIN 6.4 GM/DL (6.4-8.2)
[2017-08-20] MEDS: SODIUM CHLORIDE 0.9% FLUSH 10 ML FLUSH IV FLUSH SCH ×2 (09:00→21:00)
[2017-08-20] MEDS ORDERED: POTASSIUM CHLORIDE 20 MEQ CONTROLLED RELEASE TAB PO ONE (13:15)
[2017-08-20] MEDS: ERTAPENEM INJ 1,000 MG in SODIUM CHLORIDE 0.9% INJ 100 ML IV SCH (13:49)
[2017-08-20] MEDS: SODIUM CHLOR 0.9% 1000 ML INJ 1,000 ML IV SCH ×2 (17:56→21:29)
[2017-08-21 08:00] VITALS: BP 157/93; PULSE 77; RESP 15; TEMP 98.2; O2SAT 98
[2017-08-21] MEDS: SODIUM CHLOR 0.9% 1000 ML INJ 1,000 ML IV SCH (08:25)
[2017-08-21] MEDS: SODIUM CHLORIDE 0.9% FLUSH 10 ML FLUSH IV FLUSH SCH (08:48)
[2017-08-21] MEDS ORDERED: CIPR-9 PO (11:50)
--- NOTE | 2017-08-21 11:54 | HHI.DS ---
Discharge Summary Admission Date Aug 17, 2017 at 10:24 pm Discharge Date: Aug 21, 2017 Admitting Diagnosis Severe sepsis, acute renal failure, pyelonephritis (1) UTI due to extended-spectrum beta lactamase (ESBL) producing Escherichia coli ICD Code: N39.0 - Urinary tract infection, site not specified; B96.29 - Other Escherichia coli [E. coli] as the cause of diseases classified elsewhere; Z16.12 - Extended spectrum beta lactamase (ESBL) resistance Procedures None. Brief History - From Admission 41-year-old female with a past medical history significant for hypertension presents the emergency department for the evaluation of flulike symptoms. The patient states she has had fevers and chills 7 days with accompanying body aches. She complains of a cough productive of clear sputum with occasional shortness of breath. He denies any chest pain. She endorses bilateral side and flank pain. Denies any dysuria. No foul-smelling urine. No abdominal pain. No nausea/vomiting/diarrhea. CBC/BMP: 08/19/17 0335 08/20/17 0455 Significant Findings Laboratory Tests Test 08/19/17 03:35 08/20/17 04:55 White Blood Count 11.4 TH/MM3 (4.0-11.0) Red Blood Count 2.95 MIL/MM3 (4.00-5.30) Hemoglobin 9.0 GM/DL (11.6-15.3) Hematocrit 27.0 % (35.0-46.0) Neutrophils (%) (Auto) 73.1 % (16.0-70.0) Monocytes (%) (Auto) 13.9 % (0.0-8.0) Neutrophils # (Auto) 8.3 TH/MM3 (1.8-7.7) Monocytes # (Auto) 1.6 TH/MM3 (0-0.9) Blood Urea Nitrogen 26 MG/DL (7-18) 19 MG/DL (7-18) Creatinine 1.85 MG/DL (0.50-1.00) 1.43 MG/DL (0.50-1.00) Albumin 1.5 GM/DL (3.4-5.0) 1.6 GM/DL (3.4-5.0) Alkaline Phosphatase 305 U/L (45-117) 298 U/L (45-117) Aspartate Amino Transf (AST/SGOT) 58 U/L (15-37) Total Bilirubin 1.5 MG/DL (0.2-1.0) Chloride Level 113 MEQ/L (98-107) 115 MEQ/L (98-107) Carbon Dioxide Level 20.6 MEQ/L (21.0-32.0) Estimat Glomerular Filtration Rate 30 ML/MIN (>89) 40 ML/MIN (>89) Sodium Level 146 MEQ/L (136-145) Potassium Level 3.3 MEQ/L (3.5-5.1) Imaging Last Impressions Chest X-Ray 08/17/17 0000 Signed Impressions: Service Date/Time: Thursday, August 17, 2017 17:21 - CONCLUSION: No acute cardiopulmonary disease. Bry Bhardwaj MD Abdomen/Pelvis CT 08/17/17 0000 Signed Impressions: Service Date/Time: Thursday, August 17, 2017 21:14 - CONCLUSION: 1. Numerous tiny bilateral nonobstructing renal calculi. 2. Mild stranding of fat around the right kidney could be from recent obstructive uropathy or mild inflammatory change. 3. No bowel obstruction, free air or free fluid. Lung bases clear. Bayron Varner MD PE at Discharge awake and alert but feels weak anicteric no nuchal rigidity lungs- no rales regular rhythm HR- 99 abdomen-sfot good bowel sounds, , mild right CVA tenderness extremities no edema neuro exam- non focal Pt update on day of discharge Patient is doing well. No dysuria, hematuria. No fever, chills. Wants to go home. Hospital Course 41 years old female Sepsis secondary to right pyelonephritis- urine culture- with Gram negative rods -ESBL- sensitivity pending History of nephrolithiasis in the past blood culture- negative so far- ff final results ID ff- antibiotic switched to Ertapenem Patient remained afebrile and no dysuria, hematuria. Discussed with ID on the day of discharge. C/S shows ESBL E. Coli sensitive to Cipro. We discharged patient to continue Cipro for another 10 days. Acute Kidney injury- no baseline labs for comparison- creatinine trending down 2.9 --> 1.43. Underlying obstructive Uropathy - with history of passing stone sin the past CT shows non obstructing calculi patient voiding well- ff Hypertension- Normotensive without any meds. Pt Condition on Discharge: Good Discharge Disposition: Discharge Home Discharge Time: <= 30 minutes Discharge Instructions DIET: Follow Instructions for: As Tolerated, No Restrictions Activities you can perform: Regular-No Restrictions New Medications: Ciprofloxacin (Cipro) 500 Mg Tab 500 MG PO BID for Infection, #20 TAB 0 Refills Alissa Monteiro DO Aug 21, 2017 11:53
[2017-08-21 12:00] VITALS: BP 143/85; PULSE 87; RESP 16; TEMP 97.9; O2SAT 94
--- NOTE | 2017-08-21 18:33 | HHI.PR ---
Subjective Remarks This is a delayed entry note from August 20 Patient seen and examined, discussed with the nurse Patient had a fever of 100.9 last night around 8 PM, however today she told me she feels better, no fever and breathing well Patient on ertapenem by ID Objective Vitals Vital Signs Date Time Temp Pulse Resp B/P (MAP) Pulse Ox O2 Delivery O2 Flow Rate FiO2 08/21/17 12:00 97.9 87 16 143/85 (104) 94 08/21/17 08:00 98.2 77 15 157/93 (114) 98 08/20/17 23:30 98.6 72 20 144/91 (108) 99 08/20/17 20:00 98.8 77 20 139/91 (107) 98 I/O 08/20/17 08/20/17 08/20/17 08/21/17 08/21/17 08/21/17 07:00 15:00 23:00 07:00 15:00 23:00 Intake Total 591 ml 480 ml Balance 591 ml 480 ml Intake Oral 591 ml 480 ml # Voids 1 3 2 # Bowel Movements 1 0 Result Diagram: 08/19/17 0335 08/20/17 0455 Objective Remarks GENERAL: This is a well-nourished, well-developed patient, in no apparent distress. SKIN: No rashes, warm and dry HEAD: Atraumatic. Normocephalic. EYES: Pupils equal round and reactive. Extraocular motions intact. No scleral icterus. ENT: Nose without bleeding, or drainage, Airway patent. NECK: Trachea midline. Supple CARDIOVASCULAR: Regular rate and rhythm without murmurs, gallops, or rubs. RESPIRATORY: Fair air entry bilaterally. No wheezes, rales, or rhonchi. GASTROINTESTINAL: Abdomen soft, non-tender, nondistended. Positive bowel sounds MUSCULOSKELETAL: Extremities without clubbing, cyanosis, or edema. Pedal pulses appreciated NEUROLOGICAL: Awake and alert. Moves all extremity. Normal speech.no focal neurological deficit A/P Assessment and Plan 41 years old female Sepsis secondary to right pyelonephritis- urine culture- with Gram negative rods -ESBL- sensitivity pending History of nephrolithiasis in the past blood culture- negative so far- ff final results ID ff- antibiotic switched to Ertapenem strain urine 08/20: Patient had fever 100.9 yesterday at 8 PM, continue ertapenem, follow with ID, CBC in a.m. Acute Kidney injury- no baseline labs for comparison- creatinine trending down Underlying obstructive Uropathy - with history of passing stone sin the past CT shows non obstructing calculi patient voiding well- ff continue IVF ff BMP consider urology consult vs nephrology consult if no improvement in renal functions Hypertension- good readings off meds Hold prn IV Kilo with LEANDRO korina clonidine prn FEN Regular diet Electrolytes: Monitor and replete when necessary UP and ambulate. Increase activity Cassandra Campbell MD Aug 21, 2017 18:33
== END 2017-08-21 13:58 | disposition home or self-care (01) | DRG 872 ==
LOC: NED 16:42 → NEDA 22:24 → NEDH 08-18 04:00 → N03B 08-18 15:21 → N07A 08-20 22:48
PROVIDERS: ADMIT Hospitalist; ATTEND Hospitalist
DX: A41.9 Sepsis, unspecified organism (principal); N17.9 Acute kidney failure, unspecified; N12 Tubulo-interstitial nephritis, not specified as acute or chronic; B96.20 Unspecified Escherichia coli [E. coli] as the cause of diseases classified elsewhere; Z16.12 Extended spectrum beta lactamase (ESBL) resistance; N20.0 Calculus of kidney; I10 Essential (primary) hypertension
CPT/HCPCS: 71046; 74176; 80053; 81001; 82550; 83605; 85025; 85610; 85730; 87040; 87077; 87086; 87186; 87804; 96361; 96365; J0696; J1335; J1956; J2543; J7030